=== PATIENT | male | born 1970 | race Caucasian/White ===

== ENCOUNTER 2024-02-01 09:24 | Outpatient (CLI) | payer MEDICAID, SELFPAY ==
--- NOTE | 2024-02-01 10:00 | FL_ITS ---
WS: [id number] Exam: FL barium swallow modifd 45019 Date/Time of Exam: 02/01/2024 9:32 AM Reason For Exam: Fluoroscopy time: 1min [id number] minutes # of spot films: 0 Modified barium swallow test was performed in conjunction with the speech therapy service. The patient tolerated all consistencies of barium mixture foodstuffs without penetration or aspiratio n. The patient swallowed a barium tablet without difficulty. FL/FL barium swallow modifd 50698 IMPRESSION: 1. Unremarkable modified barium swallow test. A separate report and recommendations will follow from the speech therapy servi ce.
== END 2024-02-01 09:25 | disposition home or self-care (01) ==
PROVIDERS: Visit Provider Surgery
DX: R13.10 Dysphagia, unspecified (principal)
CPT/HCPCS: 74230; 92611

== ENCOUNTER 2024-02-29 07:27 | Day surgery (SDC) | payer MEDICAID, SELFPAY ==
[2024-02-29 07:38] VITALS: BP 151/98; PULSE 94; RESP 20; TEMP 36.1; O2SAT 95; BMI 40.6
[2024-02-29] MEDS: sodium chloride 0.9% 1,000 ML 30 ML IV (07:41)
--- NOTE | 2024-02-29 07:53 | W.PM.OPSFHP ---
Same Day Surgery H&P Indication for Procedure/HPI DATE OF PROCEDURE: February 29, 2024 CHIEF COMPLAINT/INDICATIONFOR SURGICAL PROCEDURE: dysphagia PREOP DIAGNOSIS: disphagya PLANNED PROCEDURE: Operation Date: 02/29/24 08:40 Proposed Procedures p EGD Dilation - 77289, R13.10(Not Applicable) - Donell Ambrose MD Medications/Allergies* Home Medications Medication Instructions Recorded Confirmed Type losartan 50 mg-hydrochlorothiazide 1 tab PO DAILY 01/26/24 02/29/24 History 12.5 mg tablet metoprolol succinate 25 mg 50 mg PO DAILY 01/26/24 02/29/24 History tablet,extended release 24 hr omeprazole 20 mg capsule,delayed 20 mg PO DAILY 01/26/24 02/29/24 History release Allergies/Adverse Reactions Allergy/AdvReac Type Severity Reaction Status Date / Time No Known Allergies Allergy Unverified 01/26/24 10:44 Current Medications: Generic Name Dose Route Start Last Admin Trade Name Freq PRN Reason Stop Dose Admin Sodium Chloride 1,000 mls @ 30 mls/hr 02/29/24 07:45 02/29/24 07:41 Sodium Chloride 0.9% IV 30 mls/hr .Q24H LUIS Administration Pertinent History/Comorbid Conditions* Family History (Updated 01/26/24 @ 10:49 by NOLVIA Alejandre) Heart disease Father Cancer Mother pancreatic Sister colon Brother bladder Social History Smoking and tobacco/nicotine status: current every day tobacco/nicotine user cigarettes Pertinent Exam Findings alert, oriented x 3 and clear to auscultation bilaterally Recommendations Surgery/Procedure today Coding Level of Care Code Acute Code for Chg Fwd
--- NOTE | 2024-02-29 08:07 | P.ANESASSM_ITS ---
Pre-Anesthetic Assessment Height/Weight: Height 1.83 m Weight 136.078 kg Temp Pulse Resp BP Pulse Ox O2 Del Method 97 F L 94 20 H 151/98 95 Room Air 02/29/24 07:38 02/29/24 07:38 02/29/24 07:38 02/29/24 07:38 02/29/24 07:38 02/29/24 07:38 Preop Diagnosis: disphagya Operation Date: 02/29/24 08:40 Proposed Procedures p EGD Dilation - 78561, R13.10(Not Applicable) - Donell Ambrose MD Familial anesthetic complications: none Was Beta Fabricio taken within 24 hours: N/A (took last night) Was Clonidine taken within 24 hours: N/A Last intake: Intake Last Liquid Date 02/29/24 Last Liquid Time 00:00 Last Solid Date 02/29/24 Last Solid Time 00:00 Social Tobacco (10 cigs a day) and No alcohol Exam alert and oriented x 3 Airway Submandibular: within normal limits Cervical ROM: within normal limits Mallampati: Class IV Dentition: full (multiple missing and chipped, loose in back per patient) History/ROS No significant history except as noted Pulmonary None reported CV/HEM Hypertension None reported Hepatic None reported GI Gastroesophageal Reflux Disease Metabolic Hyperlipidemia and Morbid Obesity [facility] [place] None reported Neuropsych None reported Anesthetic Plan ASA status: 3 Anesthesia: Anesthesia Evaluation, General and MAC Medications/Allergies Home Medications Medication Instructions Recorded Confirmed Last Taken Type losartan 50 mg-hydrochlorothiazide 1 tab PO DAILY 01/26/24 02/29/24 02/28/24 History 12.5 mg tablet metoprolol succinate 25 mg 50 mg PO DAILY 01/26/24 02/29/24 02/28/24 History tablet,extended release 24 hr omeprazole 20 mg capsule,delayed 20 mg PO DAILY 01/26/24 02/29/24 02/28/24 History release Allergies Allergy/AdvReac Type Severity Reaction Status Date / Time No Known Allergies Allergy Unverified 01/26/24 10:44 Current Medications Generic Name Dose Route Start Last Admin Trade Name Freq PRN Reason Stop Dose Admin Sodium Chloride 1,000 mls @ 30 mls/hr 02/29/24 07:45 02/29/24 07:41 Sodium Chloride 0.9% IV 30 mls/hr .Q24H LUIS Administration PFSH Anesthesia Family History (Updated 01/26/24 @ 10:49 by NOLVIA Alejandre) Father Heart disease Mother Cancer pancreatic Sister Cancer colon Brother Cancer bladder Social History (Updated 01/26/24 @ 10:49 by NOLVIA Alejandre) Smoking and tobacco/nicotine status: current every day tobacco/nicotine user cigarettes Data Anesthesia Cardiac Studies: No Data to Display
[2024-02-29 08:27] VITALS: BP 118/67; PULSE 90; RESP 18; TEMP 36.1; O2SAT 97
[2024-02-29 08:39] VITALS: BP 123/75; PULSE 87; RESP 18; O2SAT 94
--- NOTE | 2024-02-29 09:18 | ANE.PACU2 ---
Inpatient post-anesthesia follow up: Airway intact: Yes Vital signs: Temperature 97.0 F Pulse Rate 87 Respiratory Rate 18 Blood Pressure 123/75 Pulse Oximetry 94 Oxygen Delivery Me thod Room Air Oxygen Flow Rate Fraction of Inspir ed Oxygen Hydration adequate: Yes Nausea and vomiting: No Pain level: 1 Mental status: Baseline
== END 2024-02-29 08:57 | disposition home or self-care (01) ==
PROVIDERS: Visit Provider Surgery
DX: R13.10 Dysphagia, unspecified (principal); F17.210 Nicotine dependence, cigarettes, uncomplicated; K44.9 Diaphragmatic hernia without obstruction or gangrene; K29.80 Duodenitis without bleeding; K29.70 Gastritis, unspecified, without bleeding; K21.9 Gastro-esophageal reflux disease without esophagitis; E78.5 Hyperlipidemia, unspecified; E66.01 Morbid (severe) obesity due to excess calories; Z68.41 Body mass index [BMI] 40.0-44.9, adult
CPT/HCPCS: 43239; 88305; J2704; J7030